=== PATIENT | male | born 1945 | race Caucasian/White ===

== ENCOUNTER → 2020-09-20 14:36 | Outpatient (CLI) | payer MEDICARE, MEDICAID, SELFPAY ==
--- NOTE | ~2020-09-20 | MR_ITS ---
EXAMINATION: MR lumbar spine wo/w con DATE: 09/20/2020 16:18 INDICATION: Chronic low back pain. TECHNIQUE: Magnetic resonance imaging (MRI) of the lumbar spine was performed without and with 20 mL MultiHance intravenous contrast. Sequences included sagittal T2-weighted FSE, sagittal T2-weighted FS FSE, and sagittal and axial T1-weighted FSE. Postcontrast sequences included axial T2-weighted FSE a nd axial and sagittal T1-weighted FS FSE. COMPARISON: CT lumbar spine 10/25/2009 FINDINGS: There is 5 degrees dextrocurvature of lumbar spine. There is 3 mm retrolisthesis of L3 on L 4 and 3 mm anterolisthesis of L4 on L5. There is mild chronic anterior wedging of T11, T12, L1, and L 3 vertebral bodies. There is severely decreased disc height at T12-L1, mildly decreased disc height a t L1-L2, moderately decreased disc height at L3-L4 and L4-L5, and mildly decreased disc height at L1 5-S1 with endplate remodeling. The distal spinal cord signal intensity is normal. The conus medullari s is at T12. There is ligamentum flavum hypertrophy at the disc levels from T12-L1 through L4-L5. Epi dural lipomatosis is noted. The following disc levels are specifically discussed: T12-L1: The disc is bulging and has an annular fissure. 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 There is moderate right and mild left neural foraminal stenosis. There is mild central canal stenosis. L1-L2: The disc is bulging and has an annular fissure. 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 There is mild right and moderate left neural foraminal stenosis. There is mild central canal stenosis. L2-L3: The disc is bulging. There is mild bilateral facet joint osteoarthritis. There is mild right a nd moderate left neural foraminal stenosis. There is mild central canal stenosis. L3-L4: The disc is bulging and has an annular fissure. There is moderate right and severe left facet joint osteoarthritis. There is moderate bilateral neural foraminal stenosis. There is mild central ca nal stenosis. L4-L5: The disc is bulging. There is severe bilateral facet joint osteoarthritis. There is moderate b ilateral neural foraminal stenosis. There is severe central canal stenosis. L5-S1: The disc is bulging and has an annular fissure. 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 There is mild bilateral neural foraminal stenosis. There is mild central canal stenosis. IMPRESSION: 1. Severe lumbar and lower thoracic spondylosis. Reviewed, dictated and finalized at location A.
[2020-09-20 15:47] LABS: Estimated Glomerular Filt Rate 42
== END ==
PROVIDERS: PCP Registered Nurse; Visit Provider Registered Nurse
DX: M47.817 Spondylosis without myelopathy or radiculopathy, lumbosacral region (principal); M48.07 Spinal stenosis, lumbosacral region
CPT/HCPCS: 72158; A9577